=== PATIENT | female | born 1995 | race Caucasian/White ===

== ENCOUNTER 2017-02-19 00:35 | Emergency (ER) | payer MEDICAID, OTHER ==
[~2017-02-19] VITALS: Ht 170.2 cm; Wt 63.5 kg
[2017-02-19 00:35] VITALS: BP_SYST 103
[2017-02-19 01:14] LABS: BILIRUBIN,URINE NEGATIVE (NEGATIVE); BLOOD, URINE 3+ (NEGATIVE); CLARITY/URINE CLOUDY (CLEAR); COLOR,URINE YELLOW (YELLOW); GLUCOSE,URINE NEGATIVE (NEGATIVE); KETONES,URINE NEGATIVE (NEGATIVE); LEUKOCYTE ESTERASE ,URINE 1+ (NEGATIVE); NITRITE, URINE NEGATIVE (NEGATIVE); PROTEIN URINE 1+ (NEGATIVE); UROBILINOGEN,URINE 0.2 (0.2-1.0)
[2017-02-19 01:23] LABS: BACTERIA,URINE FEW /HPF (None Seen); RBC,URINE 50-80 /HPF (0-3); URINE AMORPHOUS PHOSPHATES 2+ /HPF (None Seen)
[2017-02-19] MEDS ORDERED: PHENAZOPYRIDINE HCL 100 MG TABLET PO ONE (02:00)
[2017-02-19] MEDS ORDERED: SULFAMETHOXAZOLE/TRIMETHOPR DS 1 TABLET PO ONE (02:00)
[2017-02-19 02:06] VITALS: BP_SYST 103
== END 2017-02-19 02:06 | disposition home or self-care (01) ==
LOC: SED 00:35
DX: N39.0 Urinary tract infection, site not specified (principal)
CPT/HCPCS: 81000-TC; 81025; 87086; 87186-TC; 99284

== ENCOUNTER 2017-03-29 19:43 | Emergency (ER) | payer MEDICAID ==
[~2017-03-29] VITALS: Ht 170.2 cm; Wt 63.0 kg
[2017-03-29 19:50] VITALS: BP_SYST 122
[2017-03-29] MEDS ORDERED: IBUPROFEN 600 MG TABLET PO ONE (20:30)
[2017-03-29] MEDS ORDERED: BACITRACIN 1 GM OINT TP ONE (21:15)
[2017-03-29 21:21] VITALS: BP_SYST 122
== END 2017-03-29 21:21 | disposition home or self-care (01) ==
LOC: SED 19:43
DX: S60.222A Contusion of left hand, initial encounter (principal); V89.2XXA Person injured in unspecified motor-vehicle accident, traffic, initial encounter; Y93.89 Activity, other specified; Y99.8 Other external cause status; Y92.89 Other specified places as the place of occurrence of the external cause
CPT/HCPCS: 81025; 99284

== ENCOUNTER 2017-04-08 13:27 | Emergency (ER) | payer MEDICAID ==
[~2017-04-08] VITALS: Ht 170.2 cm; Wt 63.0 kg
[2017-04-08 13:41] VITALS: BP 105/61; PULSE 97; RESP 18; TEMP 98.3; O2SAT 97
[2017-04-08] MEDS ORDERED: PENICILLIN G BENZATHINE 1.2 MMU/2 ML SYR IM ONE (14:30)
[2017-04-08] MEDS ORDERED: DEXAMETHASONE SOD PHOSPHATE 10 MG/ML VIAL IM ONE (14:30)
[2017-04-08] MEDS ORDERED: KETOROLAC TROMETHAMINE 60 MG/2 ML VIAL IM ONE (14:30)
[2017-04-08 14:56] VITALS: BP 121/69; PULSE 88; RESP 16; TEMP 98.5; O2SAT 99
== END 2017-04-08 14:56 | disposition home or self-care (01) ==
LOC: SED 13:27
DX: J02.0 Streptococcal pharyngitis (principal)
CPT/HCPCS: 81025; 96372; 99284; J0561; J1100; J1885

== ENCOUNTER 2017-07-17 21:22 | Emergency (ER) | payer MEDICAID ==
[~2017-07-17] VITALS: Ht 170.2 cm; Wt 62.6 kg
[2017-07-17 21:33] VITALS: BP_SYST 114
--- NOTE | 2017-07-17 21:48 | NUR ---
Patient to ER bed 07 to gown for evaluation. Side rails up. Report given to Maria Ines DAVILA
--- NOTE | 2017-07-17 21:50 | NUR ---
Patient AOx4, ambulatory, presents to ED with complaint of abdominal discomfort and "constantly feeling like I have to pee". Patient states she holds her urine for long periods at a time because of her work and has noticed blood in her urine. Patient denies fever/chills at this time. No acute distress noted at this time.
--- NOTE | 2017-07-17 21:52 | NUR ---
RITESH Garcia at bedside examining patient.
[2017-07-17 21:53] LABS: BILIRUBIN,URINE 1+ (NEGATIVE); BLOOD, URINE 3+ (NEGATIVE); GLUCOSE,URINE NEGATIVE (NEGATIVE); KETONES,URINE TRACE (NEGATIVE); LEUKOCYTE ESTERASE ,URINE 2+ (NEGATIVE); NITRITE, URINE POSITIVE (NEGATIVE); PH,URINE 6.5 (5.0-8.0); PROTEIN URINE 3+ (NEGATIVE)
[2017-07-17 22:04] LABS: CLARITY/URINE HAZY (CLEAR); COLOR,URINE RED (YELLOW)
[2017-07-17 22:11] LABS: RBC,URINE >100 /HPF (0-3)
[2017-07-17 22:12] LABS: BACTERIA,URINE FEW /HPF (None Seen); MUCUS,URINE None Seen /LPF (None Seen)
[2017-07-17] MEDS ORDERED: PHENAZOPYRIDINE HCL 100 MG TABLET PO ONE (22:15)
[2017-07-17] MEDS ORDERED: cefTRIAXone 1 GM in LIDOCAINE 1%, 20 ML MDV 2.1 ML IM ONE (22:30)
--- NOTE | 2017-07-17 22:34 | NUR ---
No adverse reactions noted after medication administration. Will continue to monitor.
[2017-07-17 22:58] VITALS: BP_SYST 107
--- NOTE | 2017-07-17 22:58 | NUR ---
Patient given written and verbal discharge instructions and verbalizes understanding. ER MD discussed with patient the results and treatment provided. Patient in stable condition. ID arm band removed. Rx of Macrobid, Pyridium, and Motrin given. Patient educated on pain management and to follow up with PMD. Pain Scale 2/10 tolerable to patient. Opportunity for questions provided and answered.
== END 2017-07-17 22:58 | disposition home or self-care (01) ==
LOC: SED 21:22
DX: N39.0 Urinary tract infection, site not specified (principal); F17.210 Nicotine dependence, cigarettes, uncomplicated; Z71.6 Tobacco abuse counseling
CPT/HCPCS: 81000; 81025; 87086; 96372; 99284; J0696; J2001

== ENCOUNTER 2017-12-07 13:04 | Emergency (ER) | payer OTHER, MEDICAID ==
[~2017-12-07] VITALS: Ht 170.2 cm; Wt 61.7 kg
[2017-12-07 13:27] VITALS: BP_SYST 114
--- NOTE | 2017-12-07 13:29 | NUR ---
MSE performed in triage per PRASHANT Gibbons.
[2017-12-07] MEDS ORDERED: ACETAMINOPHEN 325 MG TABLET PO ONE (13:30)
--- NOTE | 2017-12-07 13:31 | NUR ---
Pt placed to ER chair 1. Report given to RN.
--- NOTE | 2017-12-07 13:52 | NUR ---
Pt brought in by wheelchair for pain to right foot, pt states jumped off a building and landed on a sprinkler yesterday. Pt states is unable to bear weight to right foot. Noted bruising to bottom of right foot. Pt denies hitting head, loss of consciousness or any other pain. No other injuries/complaints per pt or noted.
--- NOTE | 2017-12-07 13:54 | NUR ---
Pain medication was given to pt, tolerated well.
[2017-12-07 14:55] VITALS: BP_SYST 110
--- NOTE | 2017-12-07 14:55 | NUR ---
Patient given written and verbal discharge instructions and verbalizes understanding. ER MD discussed with patient the results and treatment provided. Patient in stable condition. ID arm band removed. Rx of motrin given. Patient educated on pain management and to follow up with PMD. Pain Scale 3. Dr Beltran aware, medication given here and sent home prescription Opportunity for questions provided and answered.
== END 2017-12-07 14:55 | disposition home or self-care (01) ==
LOC: SED 13:04
DX: S96.911A Strain of unspecified muscle and tendon at ankle and foot level, right foot, initial encounter (principal); X58.XXXA Exposure to other specified factors, initial encounter; Y93.39 Activity, other involving climbing, rappelling and jumping off; Y92.89 Other specified places as the place of occurrence of the external cause; Y99.8 Other external cause status
CPT/HCPCS: 99284

== ENCOUNTER 2017-12-14 19:11 | Emergency (ER) | payer OTHER, MEDICAID ==
[~2017-12-14] VITALS: Ht 170.2 cm; Wt 61.7 kg
[2017-12-14 19:15] VITALS: BP_SYST 113
--- NOTE | 2017-12-14 19:35 | NUR ---
Patient to ER bed 8 to gown for evaluation. Side rails up. Report given to GIOVANNI HENDRIX.
--- NOTE | 2017-12-14 19:40 | NUR ---
Pt alert and oriented x4. Pt C/O posterior right foot pain that extends up towards calf. Skin intact, bruising under right foot, no signs of redness or swelling. Pain stated as 6/10. No signs of SOB or acute distress noted. Will continue to monitor.
[2017-12-14] MEDS ORDERED: ACETAMINOPHEN 325 MG TABLET PO ONE (20:00)
--- NOTE | 2017-12-14 20:00 | NUR ---
Marcy metcalf in [facility] - 12/14/17 at 2205 by SDNURHD RITESH COON AT BEDSIDE EXAMINING PATIENT.
--- NOTE | 2017-12-14 20:00 | NUR ---
ER PA GRULLON AT BEDSIDE EXAMINING PATIENT.
[2017-12-14 21:55] VITALS: BP_SYST 113
--- NOTE | 2017-12-14 21:55 | NUR ---
Patient given written and verbal discharge instructions and verbalizes understanding. ER MD Todd discussed with patient the results and treatment provided. Patient in stable condition. ID arm band removed. Rx of [place] given. Patient educated on pain management and to follow up with PMD. Pain Scale 0/10. Opportunity for questions provided and answered.
--- NOTE | 2017-12-15 14:17 | NUR ---
Pt was seen yesterday, called by Dr. Roberts to return after discrepancy with right foot xray. Pt ambulatory to hallway chair. Short leg posterior splint applied to right foot. + pulse noted. Capillary refill <3 seconds. Patient has ability to move non-splinted digits. Has sensation present to affected site. Skin color within normal limits. Applied for pain management control.
== END 2017-12-14 21:55 | disposition home or self-care (01) ==
LOC: SED 19:11
DX: S90.31XA Contusion of right foot, initial encounter (principal); X58.XXXA Exposure to other specified factors, initial encounter; Y93.89 Activity, other specified; Y92.89 Other specified places as the place of occurrence of the external cause; Y99.8 Other external cause status
CPT/HCPCS: 99283; 99284

== ENCOUNTER 2018-01-02 23:28 | Emergency (ER) | payer OTHER, MEDICAID ==
[~2018-01-02] VITALS: Ht 170.2 cm; Wt 61.2 kg
[2018-01-02 23:43] VITALS: BP_SYST 96
[2018-01-03 00:18] LABS: BILIRUBIN,URINE NEGATIVE (NEGATIVE); BLOOD, URINE 3+ (NEGATIVE); CLARITY/URINE CLOUDY (CLEAR); COLOR,URINE YELLOW (YELLOW); GLUCOSE,URINE NEGATIVE (NEGATIVE); KETONES,URINE NEGATIVE (NEGATIVE); LEUKOCYTE ESTERASE ,URINE 2+ (NEGATIVE); NITRITE, URINE NEGATIVE (NEGATIVE); PH,URINE 5.5 (5.0-8.0); PROTEIN URINE 2+ (NEGATIVE); UROBILINOGEN,URINE 0.2 (0.2-1.0)
[2018-01-03 00:25] LABS: BACTERIA,URINE MODERATE /HPF (None Seen); RBC,URINE >100 /HPF (0-3); WBC,URINE >100 /HPF (0-3)
--- NOTE | 2018-01-03 01:29 | NUR ---
Patient to ER bed 6 to gown for evaluation. Side rails up. Report given by GIOVANNI Mccoy to GIOVANNI Medrano.
--- NOTE | 2018-01-03 01:30 | NUR ---
Patient AAOx4, ambulatory. Patient states having painful urination and urinary frequency with pain scale 5/10 for approximately 1 day prior to ER visit. Patient denies nausea and vomiting at this time. Patient denies blood in urine. Patient denies any other complaints.
--- NOTE | 2018-01-03 01:32 | NUR ---
ER Dr. Valdez at bedside examining patient.
[2018-01-03 03:10] VITALS: BP_SYST 110
--- NOTE | 2018-01-03 03:10 | NUR ---
Patient given written and verbal discharge instructions and verbalizes understanding. ER MD discussed with patient the results and treatment provided. Patient in stable condition. ID arm band removed. Rx of pyridium and keflex given. Patient educated on pain management and to follow up with PMD. Pain Scale 0/10. Opportunity for questions provided and answered.
== END 2018-01-03 03:10 | disposition home or self-care (01) ==
LOC: SED 23:28
DX: N30.90 Cystitis, unspecified without hematuria (principal)
CPT/HCPCS: 81000-TC; 87086; 87186-TC; 99284

== ENCOUNTER 2018-05-16 20:40 | Emergency (ER) | payer MEDICAID, OTHER ==
[~2018-05-16] VITALS: Ht 170.2 cm; Wt 61.7 kg
[2018-05-16 20:48] VITALS: BP_SYST 129
[2018-05-16 21:24] LABS: BILIRUBIN,URINE NEGATIVE (NEGATIVE); BLOOD, URINE 3+ (NEGATIVE); CLARITY/URINE SL HAZY (CLEAR); COLOR,URINE YELLOW (YELLOW); GLUCOSE,URINE NEGATIVE (NEGATIVE); KETONES,URINE NEGATIVE (NEGATIVE); LEUKOCYTE ESTERASE ,URINE 2+ (NEGATIVE); NITRITE, URINE NEGATIVE (NEGATIVE); PH,URINE 6.5 (5.0-8.0); PROTEIN URINE TRACE (NEGATIVE); UROBILINOGEN,URINE 0.2 (0.2-1.0)
[2018-05-16 21:52] LABS: BACTERIA,URINE FEW /HPF (None Seen); WBC,URINE 50-80 /HPF (0-3)
[2018-05-16 21:53] LABS: MUCUS,URINE None Seen /LPF (None Seen)
[2018-05-16] MEDS ORDERED: PHENAZOPYRIDINE HCL 100 MG TABLET PO ONE (22:30)
[2018-05-16] MEDS ORDERED: SULFAMETHOXAZOLE/TRIMETHOPR DS 1 TABLET PO ONE (22:30)
[2018-05-16 22:38] VITALS: BP_SYST 124
== END 2018-05-16 22:36 | disposition home or self-care (01) ==
LOC: SED 20:40
DX: N39.0 Urinary tract infection, site not specified (principal)
CPT/HCPCS: 81000-TC; 81025; 87086; 99284

== ENCOUNTER 2019-09-10 16:45 | Emergency (ER) | payer MEDICAID ==
[~2019-09-10] VITALS: Ht 170.2 cm; Wt 65.8 kg
[2019-09-10 16:48] VITALS: BP_SYST 115
--- NOTE | 2019-09-10 16:58 | NUR ---
Patient to ER bed 04 to gown for evaluation. Side rails up.
--- NOTE | 2019-09-10 17:00 | NUR ---
Patient is awake, alert, and oriented x4. Patient reports that she has abdominal pain, frequent urination, painful urination, mild spotting of blood in urine, and nausea since today. Patient reports history of UTIs.
--- NOTE | 2019-09-10 17:04 | NUR ---
ER CHEVY Lee examining patient.
[2019-09-10 17:20] LABS: CLARITY/URINE SLIGHTLY HAZY (CLEAR); COLOR,URINE YELLOW (YELLOW)
[2019-09-10 17:21] LABS: BILIRUBIN,URINE NEGATIVE (NEGATIVE); BLOOD, URINE 3+ (NEGATIVE); GLUCOSE,URINE NEGATIVE (NEGATIVE); KETONES,URINE TRACE (NEGATIVE); LEUKOCYTE ESTERASE ,URINE 1+ (NEGATIVE); NITRITE, URINE POSITIVE (NEGATIVE); PROTEIN URINE NEGATIVE (NEGATIVE); UROBILINOGEN,URINE 0.2 (0.2-1.0)
--- NOTE | 2019-09-10 17:21 | NUR ---
Marcy metcalf in ED - 09/10/19 at 1722 by ISHAN X-ray at bedside.
--- NOTE | 2019-09-10 17:36 | NUR ---
Patient given written and verbal discharge instructions and verbalizes understanding. ER MD discussed with patient the results and treatment provided. Patient in stable condition. ID arm band removed. Rx of macrobid, motrin, pyridium given. Patient educated on pain management and to follow up with PMD. Pain Scale 0/10. Opportunity for questions provided and answered. Medication side effect fact sheet provided.
[2019-09-10 17:37] VITALS: BP_SYST 115
[2019-09-10 17:59] LABS: BACTERIA,URINE MODERATE /HPF (None Seen); YEAST,URINE Few /HPF (None Seen)
[2019-09-13 03:13] LABS: CHLAMYDIA TRACHOMATIS NAA Negative (Negative); NEISSERIA GONORRHOEAE NAA Negative (Negative)
== END 2019-09-10 17:37 | disposition home or self-care (01) ==
LOC: SED 16:45
DX: N39.0 Urinary tract infection, site not specified (principal); Z11.3 Encounter for screening for infections with a predominantly sexual mode of transmission
CPT/HCPCS: 81000-TC; 81025; 87086; 87186-TC; 87491; 87591; 99283